=== PATIENT | female | born 1960 | race Caucasian/White ===

== ENCOUNTER 2017-01-23 18:25 | Emergency (ER) | payer OTHER ==
--- NOTE | 2017-01-23 19:15 | DIAGNOSTIC IMAGING REPORT ---
PROCEDURE: XR WRIST MIN 3 VIEWS - RIGHT INDICATION: TRAUMA/INJURY TECHNIQUE: Four views. COMPARISON: None. FINDINGS: There is a comminuted intra-articular fracture the right distal radius with moderate dorsal impaction (1 cm) and volar apical angulation. There is moderate splaying of fracture fragments. There is a moderately displaced fracture of the ulnar styloid. If an occult scaphoid fracture is suspected clinically, follow-up examination in 10-14 days may be of assistance. IMPRESSION: 1. Moderately impacted and angulated comminuted intra-articular fracture the right distal radius. 2. Moderately displaced right ulnar styloid fracture.
--- NOTE | 2017-01-23 19:20 | ED ORDER SUMMARY ---
..... Patient: LILIANE WEN OrderSheet [facility] VisitID: [id number] [address] [place] [address] 56y, F Registration Date/Time: 01/23/2017 ORDER SHEET Weight: 99.3 kg (stated) Allergies: None GENERAL ORDERS: Wrist 3 or 4V Right Urgent (18:42 01/23/2017 EKoroleva P.A.-C) (Ack 18:50 OSnell) (19:03 RFay) Ice (18:42 01/23/2017 EKoroleva P.A.-C) (18:48 KPage-Kuchan R.N.) Splint (UE) (Right) (Sugar Tong) (19:14 01/23/2017 EKoroleva P.A.-C) (19:29 KPage-Kuchan R.N.) MEDICATION ORDERS: Percocet PO 5/325 mg (HIGH ALERT MEDICATION, NOW) (18:51 01/23/2017 EKoroleva P.A.-C) (18:56 KPage-Kuchan R.N.) IV FLUIDS: ORDER SHEET NOTES: [Electronically signed by Sinai Dawkins-Claudine (22:02 01/23/2017)] [Electronically signed by Brandon Phan R.N. (00:25 01/24/2017)] [Electronically locked/signed by Brandon Phan R.N. (00:25 01/24/2017)]
--- NOTE | 2017-01-23 19:20 | ED ORDER SUMMARY ---
..... Patient: LILIANE WEN OrderSheet [facility] VisitID: [id number] [address] [place] [address] 56y, F Registration Date/Time: 01/23/2017 ORDER SHEET Weight: 99.3 kg (stated) Allergies: None GENERAL ORDERS: Wrist 3 or 4V Right Urgent (18:42 01/23/2017 EKoroleva P.A.-C) (Ack 18:50 OSnell) (19:03 RFay) Ice (18:42 01/23/2017 EKoroleva P.A.-C) (18:48 KPage-Kuchan R.N.) Splint (UE) (Right) (Sugar Tong) (19:14 01/23/2017 EKoroleva P.A.-C) (19:29 KPage-Kuchan R.N.) MEDICATION ORDERS: Percocet PO 5/325 mg (HIGH ALERT MEDICATION, NOW) (18:51 01/23/2017 EKoroleva P.A.-C) (18:56 KPage-Kuchan R.N.) IV FLUIDS: ORDER SHEET NOTES: [Electronically signed by Sinai Dawkins-Claudine (22:02 01/23/2017)] [Electronically signed by Brandon Phan R.N. (00:25 01/24/2017)] [Electronically locked/signed by Brandon Phan R.N. (00:25 01/24/2017)]
--- NOTE | 2017-01-23 19:20 | ED NURSING NOTES ---
Clinical Report - Nurses [facility] [address] [place] [address] 01/23/2017 18:27 Patient: LILIANE WEN TRIAGE Triage time 18:32 Jan 23 2017. Chief Complaint: INJURY TO RIGHT WRIST. Alert. --18:35 Brandon Phan R.N. 18:31 01/23/17. BP: 139/70. HR: 96. RR: 17. O2 saturation: 100%. Temp: 97.9 F. Pain level now: 04/19. --18:35 Brandon Phan R.N. Weight: 99.3 kg stated. Height/Length: 65 inches Per Patient. BMI: 36.5. --18:33 Brandon Phan R.N. Medications None. --18:33 Brandon Phan R.N. Medication/allergy information source: the patient. --18:35 Brandon Phan R.N. Allergies None. --18:33 Brandon Phan R.N. History Arrived by private vehicle. Historian: patient. Accompanied by family. This occurred just prior to arrival. Mechanism of injury: fell while standing (fell from camper onto the ground, also striking her face, denies loc). Treatment PRODUCTION EDITOR: Ice. PAST MEDICAL HX: Tetanus status: up-to-date. Immunizations: up-to-date. SOCIAL HX: Never smoker. Occasional alcohol use. No drug use. No infectious disease exposure. ABUSE ASSESSMENT: No report of abuse. SELF HARM ASSESSMENT: A self harm assessment was performed. The patient answered "no" to the question "Do you have thoughts of harming or killing yourself?". FALL RISK ASSESSMENT: Fall risk assessment completed. No fall risk identified. NUTRITIONAL RISK ASSESSMENT: The nutritional risk assessment revealed no deficiencies. FUNCTIONAL ASSESSMENT: Functional assessment: no impairments noted. LEARNING NEEDS ASSESSMENT: The learning needs assessment revealed no barriers. SKIN INTEGRITY ASSESSMENT: Skin integrity risk assessment completed. No skin integrity risk identified. --18:35 Brandon Phan R.N. PROBLEMS: Knee Injury. Hypertension. --18:33 Brandon Phan R.N. ADDITIONAL SURGERIES: Hysterectomy. Sinus Surgery. --18:33 Brandon Phan R.N. Interventions ID band on patient. --18:35 Brandon Phan R.N. PHYSICAL ASSESSMENT Ambulatory to room. GENERAL / NEURO / PSYCH: Oriented X 4. Alert. Appears in pain. CVS: Pulses: right radial 4+. EXTREMITIES: Limited ROM present in the right forearm and right wrist. Capillary refill is less than 2 seconds in the extremities. Extremity pulses are within normal limits. Neuro-vascular status intact to the extremity. Right wrist: tenderness and swelling. SKIN: Skin intact. Skin is warm and dry. --18:36 Brandon Phan R.N. NURSING PROGRESS NOTES Cold pack applied. Neuro-vascular extremity check distal to injury: pulses intact. Reassurance given. Call light placed in reach. Side rails up. Bed placed in lowest position. Brakes of bed on. Patient ready for evaluation- chart flagged. Patient waiting for evaluation. --18:37 Brandon Phan R.N. 18:56 01/23/2017 Percocet (Oxycodone-Acetaminophen) PO 5/325 mg Tablets 1 tab given. Allergies verified, confirmed 5 rights and sedative warning given to the patient. --18:56 Brandon Phan R.N. DISPOSITION / DISCHARGE Departure time: 1953. Condition at departure: improved. No learning barriers present. Discharge instructions provided and reviewed with the patient and family. Reviewed medication(s) side effects, precautions, dosing and course information. Prescription(s) given to the patient. Patient verbalized understanding. Written instructions provided in Finnish. The patient was discharged by the physician academic affairs assistant. She was discharged home and accompanied by family and superintendent landfill operations. She left the Emergency Department ambulatory and via private vehicle. Stock Checkerer driving. --19:55 Sona Us 19:54 01/23/17. BP: 115/83. HR: 64. RR: 15. O2 saturation: 100%. Temp: deferred. Pain level now: 12/18. --19:55 Sona Us. Locked/Released at 01/24/2017 0:25 by Brandon Phan R.N.
--- NOTE | 2017-01-23 19:20 | ED CLINICAL REPORT ---
Clinical Report - Physicians/Mid Levels [facility] [address] [place] [place] [address] 01/23/2017 18:27 [id number] Time Seen: 18:45 Jan 23 2017. Arrived- By private vehicle. Historian- patient. HISTORY OF PRESENT ILLNESS Location of injuries- (right wrist). Chief Complaint: FALL. The injury occurred just prior to arrival. Fell. Occurred at home. No neck pain or loss of consciousness. Not dazed. (Patient fell from a camper, onto outstretched right wrist. Denies any right wrist injury. Superior patient is right-hand dominant. Incident occurred just prior to arrival. Patient denies any bleeding from the area. Denies any injury to her head or neck.). REVIEW OF SYSTEMS No dizziness, loss of vision, hearing loss or chest pain. She sustained skin laceration. All systems otherwise negative, except as recorded above. PAST HISTORY Problems: Knee Injury. Hypertension. Additional Surgeries: Hysterectomy. Sinus Surgery. Medications: None. Allergies: None. SOCIAL HISTORY Never smoker. Alcohol use. ADDITIONAL NOTES The nursing notes have been reviewed. PHYSICAL EXAM Vital Signs: 01/23/2017 18:31 BP: 139/70. HR: 96. RR: 17. O2 saturation: 100%. Temp: 97.9 F. Pain level now: 10/10. Appearance: Alert. No acute distress. No backboard or C-collar. Eyes: Pupils equal, round and reactive to light. EOM intact. ENT: No dental injury. No malocclusion. Neck: Painless ROM. Non-tender. Posterior neck: No tenderness. CVS: Heart sounds normal. Pulses normal. Respiratory: Breath sounds normal. Chest nontender. No chest wall injury. Abdomen: Distention. Back: No tenderness. No tenderness. Extremities: Right wrist: moderate tenderness and swelling located in the area of the radial styloid and ulnar styloid and volar aspect of the wrist. Limited ROM (diminished flexion and extension and ulnar deviation). Neurovascular intact distally. No ecchymosis or foreign body. No joint effusion. Pelvis stable. Neuro: [place] Coma Scale: 11; best verbal response- oriented x 3 (5); best motor response- obeys commands (6). Oriented X 3. No motor deficit. LABS, X-RAYS, AND EKG Rt Wrist X-ray: (IMPRESSION: 1. Moderately impacted and angulated comminuted intra-articular fracture the right distal radius. 2. Moderately displaced right ulnar styloid fracture. Electronically Final signed by:Titi Ahumada MD 01/23/2017 7:09:21 PM). PROGRESS AND PROCEDURES Splint Application: Time: 1929Jan 23 2017. Fiberglass sugar tong splint applied to right hand and wrist. Splint applied by tech with direct supervision by me. Reassessed extremity following splint application. Neurovascular intact. Course of Care: discussed case with Dr. Durham, who prefers the patient sees hand or so specialist. Discussed with Dr. Amaral,([facility] ortho fashion consultant sales) who reports he will accept to see the patient over the next 2 days, last patient is neurovascular intact, and sugar tong splints applied. Patient is stable. Symptoms better. Patient/family counseled. Disposition: Discharged. Condition: good. CLINICAL IMPRESSION Closed displaced transverse, comminuted and intraarticular fracture of the distal right radius INSTRUCTIONS Apply ice. (call Dr. Amaral office in am to follow up : [phone] [facility]). Prescription Medications: Ibuprofen 800 mg tablets: take 1 tablet orally every 8 hours. Dispense twenty (20). No refill. Percocet 5 mg/325 mg: take 1 tablet orally every 6 hours as needed for pain. Dispense twenty (20). No refill. Substitution is permissible. (Electronically signed by Sinai Dawkins P.A.-C 01/23/2017 22:02)
--- NOTE | 2017-01-23 19:20 | ED NURSING NOTES ---
Clinical Report - Nurses [facility] [address] [place] [address] 01/23/2017 18:27 Patient: LILIANE WEN TRIAGE Triage time 18:32 Jan 23 2017. Chief Complaint: INJURY TO RIGHT WRIST. Alert. --18:35 Brandon Phan R.N. 18:31 01/23/17. BP: 139/70. HR: 96. RR: 17. O2 saturation: 100%. Temp: 97.9 F. Pain level now: 04/19. --18:35 Brandon Phan R.N. Weight: 99.3 kg stated. Height/Length: 65 inches Per Patient. BMI: 36.5. --18:33 Brandon Phan R.N. Medications None. --18:33 Brandon Phan R.N. Medication/allergy information source: the patient. --18:35 Brandon Phan R.N. Allergies None. --18:33 Brandon Phan R.N. History Arrived by private vehicle. Historian: patient. Accompanied by family. This occurred just prior to arrival. Mechanism of injury: fell while standing (fell from camper onto the ground, also striking her face, denies loc). Treatment GRAVITY METER OPERATOR: Ice. PAST MEDICAL HX: Tetanus status: up-to-date. Immunizations: up-to-date. SOCIAL HX: Never smoker. Occasional alcohol use. No drug use. No infectious disease exposure. ABUSE ASSESSMENT: No report of abuse. SELF HARM ASSESSMENT: A self harm assessment was performed. The patient answered "no" to the question "Do you have thoughts of harming or killing yourself?". FALL RISK ASSESSMENT: Fall risk assessment completed. No fall risk identified. NUTRITIONAL RISK ASSESSMENT: The nutritional risk assessment revealed no deficiencies. FUNCTIONAL ASSESSMENT: Functional assessment: no impairments noted. LEARNING NEEDS ASSESSMENT: The learning needs assessment revealed no barriers. SKIN INTEGRITY ASSESSMENT: Skin integrity risk assessment completed. No skin integrity risk identified. --18:35 Brandon Phan R.N. PROBLEMS: Knee Injury. Hypertension. --18:33 Brandon Phan R.N. ADDITIONAL SURGERIES: Hysterectomy. Sinus Surgery. --18:33 Brandon Phan R.N. Interventions ID band on patient. --18:35 Brandon Phan R.N. PHYSICAL ASSESSMENT Ambulatory to room. GENERAL / NEURO / PSYCH: Oriented X 4. Alert. Appears in pain. CVS: Pulses: right radial 4+. EXTREMITIES: Limited ROM present in the right forearm and right wrist. Capillary refill is less than 2 seconds in the extremities. Extremity pulses are within normal limits. Neuro-vascular status intact to the extremity. Right wrist: tenderness and swelling. SKIN: Skin intact. Skin is warm and dry. --18:36 Brandon Phan R.N. NURSING PROGRESS NOTES Cold pack applied. Neuro-vascular extremity check distal to injury: pulses intact. Reassurance given. Call light placed in reach. Side rails up. Bed placed in lowest position. Brakes of bed on. Patient ready for evaluation- chart flagged. Patient waiting for evaluation. --18:37 Brandon Phan R.N. 18:56 01/23/2017 Percocet (Oxycodone-Acetaminophen) PO 5/325 mg Tablets 1 tab given. Allergies verified, confirmed 5 rights and sedative warning given to the patient. --18:56 Brandon Phan R.N. DISPOSITION / DISCHARGE Departure time: 1953. Condition at departure: improved. No learning barriers present. Discharge instructions provided and reviewed with the patient and family. Reviewed medication(s) side effects, precautions, dosing and course information. Prescription(s) given to the patient. Patient verbalized understanding. Written instructions provided in Micronesian. The patient was discharged by the physician post production assistant. She was discharged home and accompanied by family and data software engineer. She left the Emergency Department ambulatory and via private vehicle. Tow Feeder driving. --19:55 Sona Us 19:54 01/23/17. BP: 115/83. HR: 64. RR: 15. O2 saturation: 100%. Temp: deferred. Pain level now: 12/18. --19:55 Sona Us. Locked/Released at 01/24/2017 0:25 by Brandon Phan R.N.
--- NOTE | 2017-01-23 19:20 | ED CLINICAL REPORT ---
Clinical Report - Physicians/Mid Levels [facility] [address] [address] 01/23/2017 18:27 [id number] Time Seen: 18:45 Jan 23 2017. Arrived- By private vehicle. Historian- patient. HISTORY OF PRESENT ILLNESS Location of injuries- (right wrist). Chief Complaint: FALL. The injury occurred just prior to arrival. Fell. Occurred at home. No neck pain or loss of consciousness. Not dazed. (Patient fell from a camper, onto outstretched right wrist. Denies any right wrist injury. Superior patient is right-hand dominant. Incident occurred just prior to arrival. Patient denies any bleeding from the area. Denies any injury to her head or neck.). REVIEW OF SYSTEMS No dizziness, loss of vision, hearing loss or chest pain. She sustained skin laceration. All systems otherwise negative, except as recorded above. PAST HISTORY Problems: Knee Injury. Hypertension. Additional Surgeries: Hysterectomy. Sinus Surgery. Medications: None. Allergies: None. SOCIAL HISTORY Never smoker. Alcohol use. ADDITIONAL NOTES The nursing notes have been reviewed. PHYSICAL EXAM Vital Signs: 01/23/2017 18:31 BP: 139/70. HR: 96. RR: 17. O2 saturation: 100%. Temp: 97.9 F. Pain level now: 10/10. Appearance: Alert. No acute distress. No backboard or C-collar. Eyes: Pupils equal, round and reactive to light. EOM intact. ENT: No dental injury. No malocclusion. Neck: Painless ROM. Non-tender. Posterior neck: No tenderness. CVS: Heart sounds normal. Pulses normal. Respiratory: Breath sounds normal. Chest nontender. No chest wall injury. Abdomen: Distention. Back: No tenderness. No tenderness. Extremities: Right wrist: moderate tenderness and swelling located in the area of the radial styloid and ulnar styloid and volar aspect of the wrist. Limited ROM (diminished flexion and extension and ulnar deviation). Neurovascular intact distally. No ecchymosis or foreign body. No joint effusion. Pelvis stable. Neuro: [place] Coma Scale: 11; best verbal response- oriented x 3 (5); best motor response- obeys commands (6). Oriented X 3. No motor deficit. LABS, X-RAYS, AND EKG Rt Wrist X-ray: (IMPRESSION: 1. Moderately impacted and angulated comminuted intra-articular fracture the right distal radius. 2. Moderately displaced right ulnar styloid fracture. Electronically Final signed by:Titi Ahumada MD 01/23/2017 7:09:21 PM). PROGRESS AND PROCEDURES Splint Application: Time: 1929Jan 23 2017. Fiberglass sugar tong splint applied to right hand and wrist. Splint applied by tech with direct supervision by me. Reassessed extremity following splint application. Neurovascular intact. Course of Care: discussed case with Dr. Durham, who prefers the patient sees hand or so specialist. Discussed with Dr. Amaral,([facility] ortho director organizational) who reports he will accept to see the patient over the next 2 days, last patient is neurovascular intact, and sugar tong splints applied. Patient is stable. Symptoms better. Patient/family counseled. Disposition: Discharged. Condition: good. CLINICAL IMPRESSION Closed displaced transverse, comminuted and intraarticular fracture of the distal right radius INSTRUCTIONS Apply ice. (call Dr. Amaral office in am to follow up : [phone] [facility]). Prescription Medications: Ibuprofen 800 mg tablets: take 1 tablet orally every 8 hours. Dispense twenty (20). No refill. Percocet 5 mg/325 mg: take 1 tablet orally every 6 hours as needed for pain. Dispense twenty (20). No refill. Substitution is permissible. (Electronically signed by Sinai Dawkins P.A.-C 01/23/2017 22:02)
--- NOTE | 2017-01-24 00:25 | ED MED RECONCILIATION SUMMARY ---
Patient: LILIANE WEN Medication Reconciliation Report [facility] VisitID: [id number] [address] [place] [address] 56y, F Registration Date/Time: 01/23/2017 Weight: 99.3 kg Height/Length: 65 in. BMI: 36.5 ALLERGIES: None The patient's Home Medications are listed below: NONE. The source(s) of the original Home Medication information: patient The following Medications were given to the patient in the Emergency Department: Percocet [PO] PO 1 tab, administered: 01/23/2017 6:56:00 PM The following Medications were prescribed to the patient: Ibuprofen 800 mg tablets: take 1 tablet orally every 8 hours. Dispense twenty (20). No refill. -- Sinai Dawkins, P.A.-Claudine Percocet 5 mg/325 mg: take 1 tablet orally every 6 hours as needed for pain. Dispense twenty (20). No refill. Substitution is permissible. -- Sinai Dawkins, P.A.-C
--- NOTE | 2017-01-24 00:25 | ED DISCHARGE INSTRUCTIONS ---
Patient: LILIANE WEN General Instructions [facility] VisitID: [id number] [place] [address] 56y, F Registration Date/Time: 01/23/2017 Closed displaced transverse, comminuted and intraarticular fracture of the distal right radius INSTRUCTIONS Apply ice. (call Dr. Amaral office in am to follow up : [phone] [facility]). Prescription Medications: Ibuprofen 800 mg tablets: take 1 tablet orally every 8 hours. Dispense twenty (20). No refill. Percocet 5 mg/325 mg: take 1 tablet orally every 6 hours as needed for pain. Dispense twenty (20). No refill. Substitution is permissible. ADDITIONAL INFORMATION Fracture:Wrist (Colles) [Reduction Needed] You have a break (fracture) of the forearm bone (radius) where it attaches to the wrist. This is sometimes called a COLLES FRACTURE. The bone is out of place and must be "set" (reduced) to make it straight again. Once the bone is straightened a splint or cast will be applied. The splint or cast must remain in place until the bone heals (usually 4-6 weeks). Home Care: 1) Keep your arm elevated to reduce pain and swelling. When sitting or lying down elevate your arm above the level of your heart. You can do this by placing your arm on a pillow that rests on your chest or on a pillow at your side. This is most important during the first 48 hours after injury. 2) Apply an ice pack (ice cubes in a plastic bag, wrapped in a towel) over the injured area for 20 minutes every 1-2 hours the first day. You can place the ice pack inside the sling and directly over the splint/cast. Continue with ice packs 3-4 times a day for the next two days, then as needed for the relief of pain and swelling. 3) Keep the cast/splint completely dry at all times. Bathe with your cast/splint out of the water, protected with a large plastic bag, rubber-banded at the top end. If a fiberglass cast/splint gets wet, you can dry it with a hair-dryer. 4) You may use acetaminophen (Tylenol) or ibuprofen (Motrin, Advil) to control pain, unless another pain medicine was prescribed. [ NOTE : If you have chronic liver or kidney disease or ever had a stomach ulcer or GI bleeding, talk with your doctor before using these medicines.] Follow Up with your doctor in one week, or as advised by our staff, to be sure the bone is healing properly. If a splint was applied, it will be changed to a cast during your follow-up visit. There is a chance that the fracture will move out of place after it is set before the ends begin to seal together. Therefore, it is important that you follow-up as directed for a repeat X-ray within the next seven days. [NOTE: A radiologist will review any X-rays that were taken. We will notify you of any new findings that may affect your care.] Get Prompt Medical Attention if any of the following occur: -- The plaster cast or splint becomes wet or soft -- The fiberglass cast or splint remains wet for more than 24 hours -- Increased tightness or pain under the cast or splint -- Fingers become swollen, cold, blue, numb or tingly Fracture: Forearm (Radius/Ulna) (Reduction Needed) You have a break (fracture) of both bones in the forearm (radiusand ulna). The bones are out of place and must be set (reduced) to make them straight again. This fracture usually takes 4-6 weeks to heal. Initial treatment is with a splint or cast. Severe injuries may require surgery to repair. Home Care: Keep your arm elevated to reduce pain and swelling. When sitting or lying down elevate your arm above the level of your heart. You can do this by placing your arm on a pillow that rests on your chest or on a pillow at your side. This is most important during the first 48 hours after injury. Apply an ice pack (ice cubes in a plastic bag, wrapped in a towel) over the injured area for 20 minutes every 1-2 hours the first day. You can place the ice pack inside the sling and directly over the splint/cast. Continue with ice packs 3-4 times a day for the next two days, then as needed for the relief of pain and swelling. Keep the cast/splint completely dry at all times. Bathe with your cast/splint out of the water, protected with a large plastic bag, rubber-banded at the top end. If a fiberglass splint/cast gets wet, you can dry it with a hair-dryer. You may use acetaminophen (Tylenol) or ibuprofen (Motrin, Advil) to control pain, unless another pain medicine was prescribed. [NOTE: If you have chronic liver or kidney disease or ever had a stomach ulcer or GI bleeding, talk with your doctor before using these medicines.] Follow Up with your doctor in one week, or as advised by our staff, to be sure the bone is healing properly. If a splint was applied, it will be changed to a cast during your follow-up visit. There is a chance that the fractures will move out of place again during the first week before the ends begin to seal together. Therefore, it is important that you follow-up as directed for another X-ray. [NOTE: If x-rays were taken, they will be reviewed by a radiologist. You will be notified if there are any new findings that may affect your care.] Get Prompt Medical Attention if any of the following occur: The plaster cast or splint becomes wet or soft The fiberglass cast or splint remains wet for more than 24 hours Increased tightness or pain under the cast or splint Fingers become swollen, cold, blue, numb or tingly Oxycodone Hydrochloride, Acetaminophen Oral tablet What is this medicine? ACETAMINOPHEN; OXYCODONE (a set a ANIL jelena fen; ox i KOE done) is a pain reliever. It is used to treat mild to moderate pain. How should I use this medicine? Take this medicine by mouth with a full glass of water. Follow the directions on the prescription label. Take your medicine at regular intervals. Do not take your medicine more often than directed. Talk to your wreath machine operator regarding the use of this medicine in children. Special care may be needed. Patients over 65 years old may have a stronger reaction and need a smaller dose. What side effects may I notice from receiving this medicine? Side effects that you should report to your doctor or health clinical manager home care as soon as possible: allergic reactions like skin rash, itching or hives, swelling of the face, lips, or tongue breathing difficulties, wheezing confusion light headedness or fainting spells severe stomach pain yellowing of the skin or the whites of the eyes Side effects that usually do not require medical attention (report to your doctor or health clinical manager home care if they continue or are bothersome): dizziness drowsiness nausea vomiting What may interact with this medicine? alcohol antihistamines barbiturates like amobarbital, butalbital, butabarbital, methohexital, pentobarbital, phenobarbital, thiopental, and secobarbital benztropine drugs for bladder problems like solifenacin, trospium, oxybutynin, tolterodine, hyoscyamine, and methscopolamine drugs for breathing problems like ipratropium and tiotropium drugs for certain stomach or intestine problems like propantheline, homatropine methylbromide, glycopyrrolate, atropine, belladonna, and dicyclomine general anesthetics like etomidate, ketamine, nitrous oxide, propofol, desflurane, enflurane, halothane, isoflurane, and sevoflurane medicines for depression, anxiety, or psychotic disturbances medicines for sleep muscle relaxants naltrexone narcotic medicines (opiates) for pain phenothiazines like perphenazine, thioridazine, chlorpromazine, mesoridazine, fluphenazine, prochlorperazine, promazine, and trifluoperazine scopolamine tramadol trihexyphenidyl What if I miss a dose? If you miss a dose, take it as soon as you can. If it is almost time for your next dose, take only that dose. Do not take double or extra doses. Where should I keep my medicine? Keep out of the reach of children. This medicine can be abused. Keep your medicine in a safe place to protect it from theft. Do not share this medicine with anyone. Selling or giving away this medicine is dangerous and against the law. Store at room temperature between 20 and 25 degrees C (68 and 77 degrees F). Keep container tightly closed. Protect from light. This medicine may cause accidental overdose and if it is taken by other adults, children, or pets. Flush any unused medicine down the toilet to reduce the chance of harm. Do not use the medicine after the expiration date. What should I tell my health care provider before I take this medicine? They need to know if you have any of these conditions: brain tumor Crohn's disease, inflammatory bowel disease, or ulcerative colitis drink more than 3 alcohol containing drinks per day drug abuse or addiction head injury heart or circulation problems kidney disease or problems going to the bathroom liver disease lung disease, asthma, or breathing problems an unusual or allergic reaction to acetaminophen, oxycodone, other opioid analgesics, other medicines, foods, dyes, or preservatives or trying to get breast-feeding What should I watch for while using this medicine? Tell your doctor or health clinical manager home care if your pain does not go away, if it gets worse, or if you have new or a different type of pain. You may develop tolerance to the medicine. Tolerance means that you will need a higher dose of the medication for pain relief. Tolerance is normal and is expected if you take this medicine for a long time. Do not suddenly stop taking your medicine because you may develop a severe reaction. Your body becomes used to the medicine. This does NOT mean you are addicted. Addiction is a behavior related to getting and using a drug for a non-medical reason. If you have pain, you have a medical reason to take pain medicine. Your doctor will tell you how much medicine to take. If your doctor wants you to stop the medicine, the dose will be slowly lowered over time to avoid any side effects. You may get drowsy or dizzy. Do not drive, use machinery, or do anything that needs mental alertness until you know how this medicine affects you. Do not stand or sit up quickly, especially if you are an older patient. This reduces the risk of dizzy or fainting spells. Alcohol may interfere with the effect of this medicine. Avoid alcoholic drinks. There are different types of narcotic medicines (opiates) for pain. If you take more than one type at the same time, you may have more side effects. Give your health care provider a list of all medicines you use. Your doctor will tell you how much medicine to take. Do not take more medicine than directed. Call emergency for help if you have problems breathing. The medicine will cause constipation. Try to have a bowel movement at least every 2 to 3 days. If you do not have a bowel movement for 3 days, call your doctor or health clinical manager home care. Do not take Tylenol (acetaminophen) or medicines that have acetaminophen with this medicine. Too much acetaminophen can be very dangerous. Many nonprescription medicines contain acetaminophen. Always read the labels carefully to avoid taking more acetaminophen. You have been given the following additional information: Colles Fracture, Reduction Required Radius And Ulna Fx, Reduction Required Oxycodone Hydrochloride, Acetaminophen Oral tablet (Electronically signed by Sinai Dawkins P.A.-C 01/23/2017 22:02)
--- NOTE | 2017-01-24 00:25 | ED MAR SUMMARY ---
..... Medication Administration Record [facility] [address] [place] [address] Patient: LILIANE WEN Visit ID: [id number] 56y, F Weight: 99.3 kg Height/Length: 65 in BMI: 36.5 ALLERGIES: None Given 18:56 01/23/2017 Brandon Phan R.N. Medication Administered: PERCOCET [PO] (OXYCODONE-ACETAMINOPHEN), Dose: 1 tab 5/325 mg Tablets PO. Medication Ordered: Percocet PO 5/325 mg (HIGH ALERT MEDICATION, NOW).
--- NOTE | 2017-01-24 00:25 | ED MED RECONCILIATION SUMMARY ---
Patient: LILIANE WEN Medication Reconciliation Report [facility] VisitID: [id number] [address] [place] [address] 56y, F Registration Date/Time: 01/23/2017 Weight: 99.3 kg Height/Length: 65 in. BMI: 36.5 ALLERGIES: None The patient's Home Medications are listed below: NONE. The source(s) of the original Home Medication information: patient The following Medications were given to the patient in the Emergency Department: Percocet [PO] PO 1 tab, administered: 01/23/2017 6:56:00 PM The following Medications were prescribed to the patient: Ibuprofen 800 mg tablets: take 1 tablet orally every 8 hours. Dispense twenty (20). No refill. -- Sinai Dawkins, P.A.-Claudine Percocet 5 mg/325 mg: take 1 tablet orally every 6 hours as needed for pain. Dispense twenty (20). No refill. Substitution is permissible. -- Sinai Dawkins, P.A.-C
--- NOTE | 2017-01-24 00:25 | ED MAR SUMMARY ---
..... Medication Administration Record [facility] [address] [place] [address] Patient: LILIANE WEN Visit ID: [id number] 56y, F Weight: 99.3 kg Height/Length: 65 in BMI: 36.5 ALLERGIES: None Given 18:56 01/23/2017 Brandon Phan R.N. Medication Administered: PERCOCET [PO] (OXYCODONE-ACETAMINOPHEN), Dose: 1 tab 5/325 mg Tablets PO. Medication Ordered: Percocet PO 5/325 mg (HIGH ALERT MEDICATION, NOW).
== END 2017-01-23 19:54 | disposition home or self-care (01) ==
LOC: ED SRH 18:25
DX: S52.501A Unspecified fracture of the lower end of right radius, initial encounter for closed fracture (principal); W17.89XA Other fall from one level to another, initial encounter; Y93.9 Activity, unspecified; Y92.9 Unspecified place or not applicable; Y99.9 Unspecified external cause status; I10 Essential (primary) hypertension